=== PATIENT | female | born 1960 | race Caucasian/White ===

== ENCOUNTER 2025-02-21 07:49 | Outpatient (REF) | payer OTHER, SELFPAY ==
[2025-02-21 09:24] LABS: MANUAL DIFF FLAG NO
[2025-02-21 09:50] LABS: Basophils Percent Auto 0.8 % (0-2); Eosinophils Absolute Auto 0.1 X10*3/uL (0.0-0.4); Hematocrit 35.8 % (37.0-47.0); Hemoglobin 12.2 g/dl (12.0-16.0); Imm Gran Abs Auto 0.01 X10*3/uL (0.00-0.03); Imm Gran Pct Auto 0.2 % (0.0-0.4); Lymphocytes Absolute Auto 1.3 X10*3/uL (1.2-4.9); Lymphocytes Percent Auto 26.5 % (20-40); Mean Corpuscular HGB Conc 34.1 g/dl (31.0-35.0); Mean Corpuscular Hemoglobin 32.3 pg (27.0-33.0); Mean Corpuscular Volume 94.7 fL (80.0-98.0); Monocytes Absolute Auto 0.6 X10*3/uL (0.1-1.2); Monocytes Percent Auto 11.8 % (2-11); Neutrophils Absolute Auto 2.9 x10*3/uL (2.0-8.3); Neutrophils Percent Auto 59.7 % (45-73); Platelet Count 233 X10*3/uL (160-400); Red Blood Count 3.78 X10*6/uL (4.20-5.50); Red Cell Distribution Width 12.8 % (11.0-16.0); White Blood Count 4.9 X10*3/uL (4.8-10.8)
[2025-02-21 10:13] LABS: Alanine Aminotransferase 18 U/L (0-31); Albumin Level 4.7 g/dL (3.5-5.0); Alkaline Phosphatase 47 U/L (39-117); Anion Gap 12 (12-20); Aspartate Amino Transferase 24 U/L (5-31); Bilirubin Total 0.9 mg/dL (0.0-1.0); Blood Urea Nitrogen 14 mg/dL (9-16); Calcium 9.4 mg/dL (8.4-10.2); Carbon Dioxide 28 mmol/L (22-29); Chloride 105 mmol/L (96-108); Cholesterol 217 mg/dL (<200); Estimated Glomerular Filt Rate > 60; Glucose Random 113 mg/dL (60-115); HDL Cholesterol 93 mg/dL (>40); LDL Cholesterol Calculated 105 mg/dL (<100); Potassium 4.3 mmol/L (3.3-5.1); Sodium 141 mmol/L (135-145); Total Protein 7.5 g/dL (6.5-8.0); Triglycerides 96 mg/dL (<150)
[2025-02-21 10:33] LABS: Free T4 (Free Thyroxine) 0.91 ng/dL (0.71-1.85); TSH reflex Free T4 0.65 uIU/mL (0.32-4.0); Vitamin D 25-OH Total 60.6 ng/mL (>30)
[2025-02-21 10:41] LABS: Folate 8.5 ng/mL (> or = 4.0); Vitamin B12 456 pg/mL (200-900)
== END 2025-02-21 07:50 | disposition home or self-care (01) ==
LOC: HO.LAB 07:49
DX: K21.9 Gastro-esophageal reflux disease without esophagitis (principal); C44.91 Basal cell carcinoma of skin, unspecified; G47.00 Insomnia, unspecified; G47.10 Hypersomnia, unspecified; R92.8 Other abnormal and inconclusive findings on diagnostic imaging of breast; E78.5 Hyperlipidemia, unspecified; Z13.220 Encounter for screening for lipoid disorders; Z13.29 Encounter for screening for other suspected endocrine disorder; Z13.21 Encounter for screening for nutritional disorder; Z00.00 Encounter for general adult medical examination without abnormal findings
CPT/HCPCS: 36415; 80053; 80061; 82306; 82607; 82746; 84439; 84443; 85025; 96127; 99202

== ENCOUNTER 2025-02-21 07:49 | Outpatient (AMB) | payer OTHER, SELFPAY ==
--- OUTSIDE RECORDS SUMMARY | 2025-02-21 07:51 | XMS_ITS | Clinical Summary ---
Author Organization [facility] Address [address] [place] [address] Care Team Providers Care Electronic Design Engineer Name Role Phone Unavailable Primary Care Provider Unavailabl e Social History Tobacco Use Types Packs/Day Years Used Date Smoking Tobacco: Never Assessed Sex and Gender Information Value Date Recorded Sex Assigned at Not on file Gender Identity Not on file Sexual Orientation Not on file Plan of Treatment Health Maintenance Due Date Last Done Comments Hepatitis C Screening 1961 COVID-19 Vaccine (#1) 06/07/1962 Depression Screening 1973 Preventative Health Evaluation 12/07/1979 DTap / Tdap / Td (1 - Tdap) 1980 Cervical Cancer Screening (P ap Smear) 1982 Colon Cancer Screening (Colonoscopy) 2006 Breast Cancer Screening (Mammogram) 12/07/2011 Shingrix-Zoster Vaccine (1 of 2) 12/07/2011 Influenza Vaccine (Season Ended) 2025 RSV Adult > 60+ Yrs or Pregn ant (1 - 1-dose 75+ series) 2036 Hepatitis B Vaccines Aged Out No long er eligible based on patient's age to complete this topic Pneumococcal Vaccine Aged Out No long er eligible based on patient's age to complete this topic RSV Ped < 20 months Aged Out No longe r eligible based on patient's age to complete this topic
[2025-02-21 08:01] VITALS: BP 118/68; PULSE 71; O2SAT 97; BMI 19.9
--- NOTE | 2025-02-21 08:01 | MHC.PC.OV ---
Vital Signs 02/21/25 08:01 Height 5 ft 4.57 in Weight 118 lb BMI 19.9 BP 118/68 Blood Pressure Location Lt brachial Position Sitting Pulse 71 Pulse Source Pulse Oximeter Pulse Oximetry (%) 97 Oxygen Delivery Method Room Air Intake Visit Reasons: establish care Allergies No Known Allergies Allergy (Verified 02/21/25 08:10) Medication List - Last Reconciled 02/21/25 by Bina Aleman PA-C cholecalciferol (vitamin D3) 50 mcg PO DAILY cyanocobalamin (vitamin B-12) 1,000 mcg PO DAILY omeprazole 40 mg PO DAILY Tobacco use date assessed: 02/21/25 Dental Screening Dental Screen Date: 02/21/25 Did you have a dental visit in the last 12 months?: Yes Did you have a dental problem in the last 6 months where you did not have access to dental care?: No Was dental information given to patient?: Patient has dentist HPI establish care HPI Details 64-year-old female with past medical history of chronic GERD, hyperlipidemia, chronic sciatica and history of basal cell carcinoma coming to the office for the 1st time. Presenting for a wellness visit and management of chronic conditions. The patient has a history of basal cell carcinoma, with recent findings of two spots on her back confirmed as basal cell carcinoma by her business administrator. She is scheduled to see a surgeon on March 27 for removal of these lesions. The patient reports chronic insomnia, with difficulty staying asleep and frequent awakenings throughout the night. She has tried onne-yuc-gnpguyz medications and alcohol to aid sleep, with limited success. The patient has a history of acid reflux, which is currently managed with medication. The patient is due for a colonoscopy and has been referred for this procedure. She had an abnormal mammogram earlier this year and is scheduled for a follow-up in March. [facility] Surgical History Status post Mohs surgery Family History Mother Heart disease Heart attack Father Heart disease Heart attack Emphysema lung Brother No problems noted. Brother Stroke Social History Housing: House Patient Tobacco Use Status: Never used Tobacco Tobacco use type: Cigarette e-Cigarette/Vaping Use: Never Used Second Hand Smoke Exposure: No service: No Current occupational status: employed Current occupational exposures/hazards: No Cognitive needs: No Hearing needs: No Vision needs: Yes Questionnaire PHQ-9 Over the last 2 weeks, how often have you been bothered by any of the following problems? 1. Little interest or pleasure in doing things: not at all 2. Feeling down, depressed, or hopeless: not at all 3. Trouble falling or staying asleep, or sleeping too much: not at all 4. Feeling tired or having little energy: not at all 5. Poor appetite or overeating: not at all 6. Feeling bad about yourself - or that you are a failure or have let yourself or your family down: not at all 7. Trouble concentrating on things, such as reading the newspaper or watching television: not at all 8. Moving or speaking so slowly that other people could have noticed. Or the opposite - being so fidgety or restless that you have been moving around a lot more than usual: not at all 9. Thoughts that you would be better off or of hurting yourself in some way: not at all Total score: 0 Depression Screening Interpretation: Negative Depression Screening Done: Yes 52149 - PHQ-9 Billing: Yes Source: Developed by Drs. Edinson Wright, Annette Miller, Josesito Álvarez and colleagues, with an educational elle from [employer]. Thrive Questionnaire Date Thrive assessed: 02/15/25 I am a: Patient What is your living situation today?: I have a steady place to live Within the past 12 months, did the food you bought not last and you didn't have the money to get more?: Never true Within the past 12 months, did you worry whether your food would run out before you got money to buy more?: Never true Do you have trouble paying for medicines?: No Do you have trouble getting transportation to medical appointments?: No Do you have trouble paying your heating and electricity bill?: No Do you have trouble taking care of your child, family member or friend?: No Do you have trouble with day-to-day activities such as bathing, preparing meals, shopping, managing finances, etc.?: No Are you currently unemployed and looking for a job?: No Are you interested in more education?: No Please select the resources that you would like help with: None Currently or been in a relationship where the following occur: No concerns reported THRIVE Score: 0 AUDIT C Alcohol Use Questionnaire (AUDIT-C) 1. How often do you have a drink containing alcohol?: 2-3 times a week 2. How many drinks containing alcohol do you have on a typical day when you are drinking?: 3 or 4 3. How often do you have six or more drinks on one occasion?: Less than monthly Total Score: 5 ALVIN-7 AMB Questionnaire ALVIN-7 Date ALVIN - 7 assessed: 02/21/25 Feeling nervous, anxious, or on edge: 0 = Not at all Not being able to stop or control worryin = Not at all Worrying too much about different things: 0 = Not at all Trouble relaxin = Several days Being so restless that it is hard to sit still: 3 = Nearly every day Becoming easily annoyed or irritable: 0 = Not at all Feeling afraid as if something awful might happen: 0 = Not at all Total ALVIN-7 score (0-4 normal; 5-9 mild; 10-14 moderate; 15-21 severe): 4 Source: Developed by Drs. Edinson Wright, Annette Miller, Josesito Álvarez and colleagues, with an educational elle from [employer]. ALVIN-7 Assessment Billing ALVIN-7 Assessment Tool: ALVIN-7 Assessment 13386 Review of Systems Const Denies body aches, Denies chills, Denies fever(s), Denies headache(s) and Denies poor appetite Eyes Reports no additional complaints ENT Denies dysphagia, Denies dizziness, Denies headache(s) and Denies odynophagia Card Denies chest pain, Denies syncope, Denies edema, Denies irregular heart rhythm, Denies lightheadedness and Denies dyspnea Resp Denies cough and Denies dyspnea GI Denies abdominal pain, Denies constipation, Denies dysphagia, Denies diarrhea, Denies nausea, Denies odynophagia and Denies vomiting Reports no additional complaints Musc Reports no additional complaints and Denies abnormal gait Skin/Breast Reports system reviewed and no additional complaints, except as documented Neuro Denies abnormal gait, Denies dizziness, Denies syncope and Denies headache(s) Psych Reports no additional complaints Physical exam (Primary Care) Vital Signs: Last Vital Signs Pulse 71 02/21/25 08:01 BP 118/68 02/21/25 08:01 Pulse Ox 97 02/21/25 08:01 Oxygen Delivery Method Room Air 02/21/25 08:01 BMI result Body Mass Index 19.9 Tobacco/Smoking Status: Tobacco use Status Tobacco use date assessed 02/21/25 02/21/25 08:08 Patient Tobacco Use Status Never used Tobacco 02/21/25 08:08 Tobacco use type Cigarette 02/21/25 08:08 e-Cigarette/Vaping Use Never Used 02/21/25 08:08 PHQ-9: PHQ-9 Score PHQ-9: Total score 0 02/21/25 08:10 Depression Screening Interpretation: Negative Thrive Assessment: Date of Thrive Assessment Date Thrive assessed 02/15/25 02/21/25 08:08 Currently or been in a relationship where the following occur: No concerns reported Const General: cooperative, healthy appearing, comfortable and no acute distress Orientation/consciousness: patient oriented x3 HENMT Head: Yes normocephalic Ears: hearing grossly normal bilaterally General nose exam: Normal external nose present Eyes General: appearance normal, both eyes and all related structures Conjunctivae: conjunctivae normal Neck Neck: Yes full ROM and Yes no lymphadenopathy Resp Effort & Inspection: normal respiratory effort Auscultation: clear to auscultation bilaterally, no crackles, no rales, no rhonchi and no wheezes Cardio Rate: regular rate Rhythm: regular rhythm Skin General skin exam: no rashes or lesions noted Neuro General: patient oriented x3 Gait exam (Neuro): Normal gait present Extrem General: Yes normal to inspection, Yes full ROM and No edema Psych Affect: normal affect Attitude: cooperative Insight: Good insight present (Psych) Judgement: Good judgement present (Psych) Coding Level of Care Code New Pt Level 4 (05641) Diagnoses GERD (gastroesophageal reflux disease) K21.9 Basal cell carcinoma C44.91 Screening for hypercholesterolemia Z13.220 Screening for thyroid disorder Z13.29 Insomnia, unspecified type G47.00 Insomnia type: unspecified Hypersomnolence G47.10 Abnormal mammogram R92.8 Additional Codes ALVIN-7 Assessment Billing - ALVIN-7 Assessment Tool: ALVIN-7 Assessment 59695 ([id number]) PHQ-9 - 50240 - PHQ-9 Billing: Yes ([id number]) Assessment & Plan Assessment & Plan (1) GERD (gastroesophageal reflux disease): Code(s): K21.9 - Gastro-esophageal reflux disease without esophagitis Category: Medical Plan: Avoid trigger foods such as citrus, tomato products, soda, caffeine, spicy foods and other foods that may be irritating to your stomach. Avoid laying flat 3-4 hours after eating and elevate the head of the bed 30 degrees to prevent acid from moving into the esophagus. Continue on Omeprazole (2) Basal cell carcinoma: Comment: Derm through [facility] skin lesion on the back x2 Code(s): C44.91 - Basal cell carcinoma of skin, unspecified Category: Medical Plan: Currently following with [facility] and [place]. She has a history of basal cell carcinoma that was removed from her upper lip. Subsequently 2 other lesions were identified on the back and she is scheduled to see a surgeon later this month. (3) Screening for hypercholesterolemia: Code(s): Z13.220 - Encounter for screening for lipoid disorders Category: Medical Plan: Blood work ordered (4) Screening for thyroid disorder: Code(s): Z13.29 - Encounter for screening for other suspected endocrine disorder Category: Medical Plan: Blood work ordered (5) Insomnia: Code(s): G47.00 - Insomnia, unspecified Category: Medical Qualifiers: Insomnia type: unspecified Qualified Code(s): G47.00 - Insomnia, unspecified Plan: Patient have difficulty falling asleep and staying asleep she has tried multiple xdkw-ers-dtyglwz medications including; Tylenol PM, Advil PM and melatonin. All of his medications have helped her fall asleep but not stay asleep. Discussed possibility of treatment and hydroxyzine was decided upon by the patient. Plan to start on 25 mg nightly discussed side effects of this medication when to reach out to the office. (6) Hypersomnolence: Code(s): G47.10 - Hypersomnia, unspecified Category: Medical Plan: Plan to obtain sleep study for further evaluation. (7) Abnormal mammogram: Code(s): R92.8 - Other abnormal and inconclusive findings on diagnostic imaging of breast Category: Medical Plan: [place] [facility] [place] of breast abnormality. Plan to obtain these notes. Plan The patient will be referred for a colonoscopy to screen for colorectal cancer, as she is due for this preventative measure. A follow-up mammogram is scheduled for March due to a previous abnormal result, ensuring close monitoring of her breast health. Additionally, a bone density screening is recommended to assess her risk for osteoporosis, with advice to increase dietary calcium and vitamin D intake to support bone health. For her insomnia, hydroxyzine has been prescribed to aid sleep, with instructions to monitor its effectiveness and report any adverse effects. A sleep study is also planned to rule out any underlying sleep disorders such as sleep apnea. The patient's acid reflux will continue to be managed with her current medication, and she is advised to contact the pharmacy for any necessary refills. Lastly, the patient is scheduled to see a surgeon on March 27 for the removal of basal cell carcinoma lesions on her back, following recent dermatological findings. This note was constructed using voice recognition software. While every effort has been made to ensure accuracy and planishing hammer operator, still areas may have been included sometimes these areas may affect the content or meeting of the given symptoms. Total time spent caring for the patient today was 45 minutes. This includes time spent before the visit reviewing the chart, time spent during the visit, and time spent after the visit and documentation. Patient was informed and verbally consented to the use of an ambient scribe for clinic note documentation during this visit. Orders: Orders Comprehensive Met. Panel Today K21.9 - Gastro-esophageal reflux disease without esophagitis, Z00.00 - Encounter for general adult medical examination without abnormal findings Complete Blood Count Auto Diff Today K21.9 - Gastro-esophageal reflux disease without esophagitis, Z00.00 - Encounter for general adult medical examination without abnormal findings Vitamin B12 and Folate Today K21.9 - Gastro-esophageal reflux disease without esophagitis, Z13.21 - Encounter for screening for nutritional disorder TSH reflex Free T4 Today Z13.29 - Encounter for screening for other suspected endocrine disorder RT home sleep study Today G47.10 - Hypersomnia, unspecified Vitamin D 25-OH Total Today K21.9 - Gastro-esophageal reflux disease without esophagitis, Z00.00 - Encounter for general adult medical examination without abnormal findings Free T4 (Free Thyroxine) Today Z13.29 - Encounter for screening for other suspected endocrine disorder Lipid Panel Today Z13.220 - Encounter for screening for lipoid disorders Referrals Gastroenterology Referral Z12.11 - Encounter for screening for malignant neoplasm of colon Medications: New omeprazole 40 mg PO DAILY 90 caps 1RF hydroxyzine HCl 25 mg PO BEDTIME 30 tabs 1RF
== END 2025-02-21 08:59 | disposition home or self-care (01) ==
LOC: HO.HMCH 07:49
DX: K21.9 Gastro-esophageal reflux disease without esophagitis (principal); C44.91 Basal cell carcinoma of skin, unspecified; Z13.220 Encounter for screening for lipoid disorders; Z13.29 Encounter for screening for other suspected endocrine disorder; G47.00 Insomnia, unspecified; G47.10 Hypersomnia, unspecified; R92.8 Other abnormal and inconclusive findings on diagnostic imaging of breast

== ENCOUNTER 2025-04-24 10:17 | Outpatient (AMB) | payer OTHER, SELFPAY ==
--- OUTSIDE RECORDS SUMMARY | 2025-04-21 10:00 | XMS_ITS | Encounter Summary ---
Author Organization [facility] Address [address] [place] [address] Care Team Providers Care Film And Video Editor Name Role Phone Paola Llamas MD Primary Care Provide r Reason for Visit * Reason Comments Procedure Excisions Encounter Details Date Type Department Care Team (Latest Contact Info) Description 04/21/2025 10:00 AM EDT Procedure visit General Surgery - [place] [address] [facility] [address] [place] [id number] Sukh Javier MD [address] [facility] [address] [place] [address] Basal cell carcinoma (BCC) of back (Primary Dx) Social History Tobacco Use Types Packs/Day Years Used Date Smoking Tobacco: Never Smokeless Tobacco: Never Alcohol Use Standard Drinks/Week Comments Yes 0 (1 standard drink = 0.6 oz pur e alcohol) Comments Unknown Sex and Gender Information Value Date Recorded Sex Assigned at Not on file Legal Sex Female 1:52 PM EST Gender Identity Not on file Sexual Orientation Not on file documented as of this encounter Last Filed Vital Signs Vital Sign Reading Time Taken Comments Blood Pressure 120/76 04/21/2025 10:11 AM EDT Pulse 80 04/21/2025 10:11 AM EDT Temperature 36.2 C (97.1 F) 04/21/2025 10:11 AM EDT Respiratory Rate - - Oxygen Saturation - - Inhaled Oxygen Concentration - - Weight 55.3 kg (122 lb) 04/21/2025 10:11 AM EDT Height 165.1 cm (5' 5 ) 04/21/2025 10:11 AM EDT Body Mass Index 20.3 04/21/2025 10:11 AM EDT documented in this encounter Progress Notes * Lilia Max MA - 04/21/2025 10:00 AM EDT CARING FOR YOUR WOUND AT HOME: A waterproof dressing has been applied over your incision today. Please leave this on for 2 days (you may remove this dressing on 04/23). Some oozing of blood may be normal following your procedure and typically represents old surgical blood making its way out through your incision prior to it fully closing. You may change your dressing earlier than 2 days as needed if you note blood soaking through the bandage. You may shower right away following your procedure, however please do not soak in baths, hot tubs, pools, etc. until after being evaluated at your follow up appointment. After removing your dressing, please make sure to keep your incision clean and dry. Gently wash with soap and water and pat dry with a clean towel. It is best to leave this open to the air, however you may and apply a bandaid or gauze dressing as needed for comfort. If you do not have steri strips in place, please apply a thin layer of antibiotic ointment (bacitracin, neosporin) over the sutures once daily. The area may be sore following the procedure. You may take over the counter pain medications (ex. Tylenol, Ibuprofen) for postoperative discomfort if you have no known contraindications to taking these medications. You may additionally ice the incision site. Carefully watch for signs of potential wound infection such as fevers > 101.4 F, chills, nausea,vomiting, increased pain in the area, surrounding redness, or excessive drainage. Please call the office if any of these symptoms or other concerns arise. If you do not have any external sutures to remove, we may follow up in the office on an as-needed basis. The office will call you with pathology results once available. If you have external sutures in place that need to be removed, we will plan to follow up in the office 10-14 days later for sutureremoval. If you have any questions or concerns, please feel free to call the office at [phone]. * Sukh Sobral, MD - 04/21/2025 10:00 AM EDT Images from the original note were not included. Pre and post op dx: 1. Dysplastic nevus left mid back 2. Basal cell carcinoma left lower back Procedure: 1. Excision 0.6 cm basal cell carcinoma from the left lower back 2. 1.5 cm layered closure Indication: Karli Ariza is a 64 y.o. year old female very pleasant who comes in for evaluation and management of a compound nevus with architectural disorder and moderate cytologic atypia (dysplastic nevus) extending to 1 peripheral margin and to the deep margin of a shave biopsy specimen obtained February 07, 2025. Also a basal cell carcinoma of the nodular type extending to 1 peripheral margin and to the deep margin. She has a personal history of prior nonmelanoma skin cancers excised fromthe face and the chest. Undergoes regular full skin examinations. Otherwise fairly healthy, non-smoker, nondiabetic who does not take anticoagulants or antiplatelets or steroids. On exam there are 2 healing cicatrix sites consistent with the relatively recent history of shave biopsy. I reviewed and interpreted the pathology report from the shave biopsies obtained February 07, 2025 fromthe left mid back consisting of a flat piece of skin measuring 0.5 cm with a central brown macule measuring 0.2 cm. The specimen from the left lower back measured 0.6 cm. Otherwise pathology as per above I had a discussion with the patient regarding the nature of her history and physical exam findings as well as the pathology results indicating a dysplastic nevus in the left upper back which appears to have been almost entirely excised with the shave biopsy but there is a possibility some small amount of residual material could be still in situ remaining. I explained the option of elective excision in the setting under local anesthesia versus watchful waiting for this particular lesion. In the left lower back the area should be excised to negative margins to address the biopsy-proven malignancy. Minimal operative risks expected. The patient had several question which I believe were answeredto her satisfaction. Joint decision made to proceed with excision of both sites simultaneously Description: Local anesthesia was administered following sterile prep and drape. Next a full-thickness elliptical incision was made through the dermis with a scalpel and extended or deepened around and under the lesion through subcutaneous tissue with sharp dissection. The lesion and a margin of normal tissue were completely excised, removed, marked and sent to pathology. The greatest clinical diameter of the apparent lesion was 0.6 cm. The most narrow margin required for complete excision was 0.1 cm circumferentially. The total excised diameter was 0.8 cm. This created a rather deep local defect measuring approximately 1.5 centimeters in total length. The resulting complex laceration or wound was closed in 2 layers. Hemostasis was achieved by tissue approximation and observed to be complete. The wound edges were first approximated with deep dermal sutures of 3-0 Vicryl. The more superficial layer of skin was then closed with 4-0 Nylon. The area was treated with antimicrobial ointment. A clean dressing was applied. Blood loss: Minimal Complications: None The patient was given wound care and activity instructions. The patient will return for followup in2 weeks. documented in this encounter Plan of Treatment Upcoming Encounters Date Type Department Care Team (Late st Contact Info) Description 05/05/2025 10:00 AM EDT Clinical Support General Surgery [address] [place] [id number] Pending Results Name Type Priority Associated Diagnoses Date /Time Tissue Exam Pathology and Cytology Routine Basal cell carcinoma (BCC) of back 04/21/2025 10:55 AM EDT documented as of this encounter Visit Diagnoses Diagnosis Basal cell carcinoma (BCC) of back- Primary documented in this encounter Care Teams Film And Video Editor Relationship Specialty Start Date End Date Paola Llmaas MD [address] [place] [address] PCP - General Internal Medicine 01/10/21 documented as of this encounter
--- NOTE | 2025-04-24 10:26 | A.OFFPC_ITS ---
Vital Signs 3 04/24/25 10:28 Height 5 ft 4.57 in Weight 124 lb 2 oz BMI 20.9 BP 120/54 L Blood Pressure Location Lt brachial Position Sitting Pulse 88 Pulse Source Pulse Oximeter Pulse Oximetry (%) 98 Oxygen Delivery Method Room Air Intake Visit Reasons: Annual Exam Pediatric Dental Assistant Required: No Allergies No Known Allergies Allergy (Verified 04/24/25 10:42) Medication List - Last Reconciled 04/24/25 by Bina Aleman PA-C cholecalciferol (vitamin D3) 50 mcg PO DAILY cyanocobalamin (vitamin B-12) 1,000 mcg PO DAILY hydroxyzine HCl 25 mg PO BEDTIME omeprazole 40 mg PO DAILY Tobacco use date assessed: 04/24/25 Dental Screening Dental Screen Date: 04/24/25 Did you have a dental visit in the last 12 months?: Yes Did you have a dental problem in the last 6 months where you did not have access to dental care?: No Was dental information given to patient?: Patient has dentist HPI Annual Exam 2 HPI0 Details 64-year-old female past medical history of GERD, basal cell carcinoma, insomnia, hypersomnolence last seen 01/2225 coming in for annual exam. Presenting for an annual examination. The patient has a history of basal cell carcinoma and continues to follow up with dermatology for management. Recently, a basal cell lesion was removed from her back, and she has two stitches in place with no signs of infection. The patient has been experiencing insomnia and hypersomnolence, for which she has been taking hydroxyzine as needed. She reports that hydroxyzine helps her fall asleep but she wakes up after a few hours. The dosage of hydroxyzine is being adjusted to 50 mg to improve her sleep duration. mammo: [facility] - diag mammo Thursday colonoscopy: scheduled for 05/2025 vaccines: UTD she believes pap smears: [facility] Medical History Screening for thyroid disorder Screening for hypercholesterolemia Surgical History Status post Mohs surgery Family History Mother Heart disease Heart attack Father Heart disease Heart attack Emphysema lung Brother No problems noted. Brother Stroke Social History Housing: House Patient Tobacco Use Status: Never used Tobacco Tobacco use type: Cigarette e-Cigarette/Vaping Use: Never Used Second Hand Smoke Exposure: No service: No Current occupational status: employed Current occupational exposures/hazards: No Cognitive needs: No Hearing needs: No Vision needs: Yes Questionnaire PHQ-9 Over the last 2 weeks, how often have you been bothered by any of the following problems? 1. Little interest or pleasure in doing things: not at all 2. Feeling down, depressed, or hopeless: not at all 3. Trouble falling or staying asleep, or sleeping too much: not at all 4. Feeling tired or having little energy: not at all 5. Poor appetite or overeating: not at all 6. Feeling bad about yourself - or that you are a failure or have let yourself or your family down: not at all 7. Trouble concentrating on things, such as reading the newspaper or watching television: not at all 8. Moving or speaking so slowly that other people could have noticed. Or the opposite - being so fidgety or restless that you have been moving around a lot more than usual: not at all 9. Thoughts that you would be better off or of hurting yourself in some way: not at all Total score: 0 Depression Screening Interpretation: Negative Depression Screening Done: Yes Source: Developed by Drs. Edinson Wright, Annette Miller, Josesito Álvarez and colleagues, with an educational elle from [employer]. Thrive Questionnaire Date Thrive assessed: 02/15/25 I am a: Patient What is your living situation today?: I have a steady place to live Within the past 12 months, did the food you bought not last and you didn't have the money to get more?: Never true Within the past 12 months, did you worry whether your food would run out before you got money to buy more?: Never true Do you have trouble paying for medicines?: No Do you have trouble getting transportation to medical appointments?: No Do you have trouble paying your heating and electricity bill?: No Do you have trouble taking care of your child, family member or friend?: No Do you have trouble with day-to-day activities such as bathing, preparing meals, shopping, managing finances, etc.?: No Are you currently unemployed and looking for a job?: No Are you interested in more education?: No Please select the resources that you would like help with: None Currently or been in a relationship where the following occur: No concerns reported THRIVE Score: 0 AUDIT C Alcohol Use Questionnaire (AUDIT-C) 1. How often do you have a drink containing alcohol?: 2-3 times a week 2. How many drinks containing alcohol do you have on a typical day when you are drinking?: 3 or 4 3. How often do you have six or more drinks on one occasion?: Less than monthly Total Score: 5 ALVIN-7 AMB Questionnaire ALVIN-7 Date ALVIN - 7 assessed: 02/21/25 Feeling nervous, anxious, or on edge: 0 = Not at all Not being able to stop or control worryin = Not at all Worrying too much about different things: 0 = Not at all Trouble relaxin = Several days Being so restless that it is hard to sit still: 3 = Nearly every day Becoming easily annoyed or irritable: 0 = Not at all Feeling afraid as if something awful might happen: 0 = Not at all Total ALVIN-7 score (0-4 normal; 5-9 mild; 10-14 moderate; 15-21 severe): 4 Source: Developed by Drs. Edinson Wright, Annette Miller, Josesito Álvarez and colleagues, with an educational elle from [employer]. Review of Systems Const Denies body aches, Denies fatigue, Denies fever(s), Denies frequent falls, Denies headache(s) and Denies weakness Eyes Reports no additional complaints and Denies change in vision ENT Denies dysphagia, Denies dizziness, Denies facial pain, Denies headache(s), Denies nasal congestion and Denies odynophagia Card Denies chest pain, Denies syncope, Denies irregular heart rhythm, Denies leg edema, Denies lightheadedness and Denies dyspnea Resp Denies cough and Denies dyspnea GI Denies constipation, Denies dysphagia, Denies dyspepsia, Denies diarrhea, Denies nausea, Denies odynophagia and Denies vomiting Denies urinary frequency, Denies dysuria, Denies urinary hesitancy and Denies urinary urgency Musc Denies back pain and Denies myalgias Skin/Breast Reports system reviewed and no additional complaints, except as documented Neuro Denies dizziness, Denies syncope, Denies frequent falls, Denies headache(s) and Denies weakness Psych Reports no additional complaints Endo Denies fatigue Physical exam (Primary Care) Vital Signs: Last Vital Signs Pulse 88 04/24/25 10:28 BP 120/54 L 04/24/25 10:28 Pulse Ox 98 04/24/25 10:28 Oxygen Delivery Method Room Air 04/24/25 10:28 BMI result Body Mass Index 20.9 Tobacco/Smoking Status: Tobacco use Status Tobacco use date assessed 04/24/25 04/24/25 10:33 Patient Tobacco Use Status Never used Tobacco 04/24/25 10:33 Tobacco use type Cigarette 04/24/25 10:33 e-Cigarette/Vaping Use Never Used 04/24/25 10:33 PHQ-9: PHQ-9 Score PHQ-9: Total score 0 04/24/25 10:42 Depression Screening Interpretation: Negative Thrive Assessment: Date of Thrive Assessment Date Thrive assessed 02/15/25 04/24/25 10:33 Currently or been in a relationship where the following occur: No concerns reported Const General: cooperative, healthy appearing, comfortable and no acute distress Orientation/consciousness: patient oriented x3 HENMT Head: Yes normocephalic Ears: hearing grossly normal bilaterally, external ears normal, TM's normal bilaterally and EAC's normal General nose exam: Normal external nose present Face and sinus: Yes normal facial exam and Yes sinuses nontender Mouth: Normal oral and palatal mucosa present and tongue normal Throat: Yes posterior oropharynx normal Eyes General: appearance normal, both eyes and all related structures Conjunctivae: conjunctivae normal Pupils: Equal, round and reactive pupils present EOM: EOMs intact bilaterally and No Nystagmus present Neck Neck: Yes normal visual inspection, Yes full ROM and Yes no lymphadenopathy Chest Chest palpation & inspection: normal inspection of the chest Resp Effort & Inspection: normal respiratory effort Auscultation: clear to auscultation bilaterally, no crackles, no rales, no rhonchi, no wheezes and breath sounds present Cardio Rate: regular rate Rhythm: regular rhythm Peripheral pulses: radial pulses present and dorsalis pedis present GI Inspection: Yes normal to inspection and No Abdominal wall edema Palpation (GI): Soft to palpation, not firm and nontender Auscultation: normal bowel sounds Rectal Exam - Female: deferred General: Yes no CVA tenderness Back/Spine/Pelvis Back: no CVA tenderness Skin General skin exam: no rashes or lesions noted Full body images: 2 1. Incision site clean dry and intact with to in place sutures without evidence of dehiscence. No drainage or erythema Neuro General: patient oriented x3 Cranial nerves: Yes Equal, round and reactive pupils present, Yes Midline tongue present, Yes Ability to bilaterally elevate shoulders present and No Nystagmus present Gait exam (Neuro): Normal gait present Extrem General: Yes normal to inspection, Yes full ROM, No no pedal edema and No edema Psych Speech and movement: Normal speech and movement present Affect: normal affect Insight: Good insight present (Psych) Judgement: Good judgement present (Psych) Coding Level of Care Code Est Pt Prev Care 40-64y(46757) Diagnoses Annual physical exam Z00.00 GERD (gastroesophageal reflux disease) K21.9 Basal cell carcinoma C44.91 Insomnia, unspecified type G47.00 Insomnia type: unspecified Hypersomnolence G47.10 Abnormal mammogram R92.8 Low hematocrit D64.9 Assessment & Plan Assessment & Plan (1) Annual physical exam: Code(s): Z00.00 - Encounter for general adult medical examination without abnormal findings Category: Medical Plan: Patient is up-to-date on all recommended routine screenings and vaccinations for her age. Colonoscopy is scheduled for later this year and mammogram was scheduled for next week with [facility]. She is due for tetanus vaccine which she declines today and agrees to reschedule. Blood work is up-to-date and has been reviewed with the patient today. (2) GERD (gastroesophageal reflux disease): Code(s): K21.9 - Gastro-esophageal reflux disease without esophagitis Category: Medical Plan: Avoid trigger foods such as citrus, tomato products, soda, caffeine, spicy foods and other foods that may be irritating to your stomach. Avoid laying flat 3-4 hours after eating and elevate the head of the bed 30 degrees to prevent acid from moving into the esophagus. Continue on Omeprazole (3) Basal cell carcinoma: Comment: Derm through [facility] skin lesion on the back x2 removed by Dr. Salinas Code(s): C44.91 - Basal cell carcinoma of skin, unspecified Category: Medical Plan: Currently following with [facility] and [place]. She has a history of basal cell carcinoma that was removed from her upper lip. Subsequently 2 other lesions were identified on the back and 1 removed on Thursday and she will continue to follow up with Dermatology. (4) Insomnia: Code(s): G47.00 - Insomnia, unspecified Category: Medical Qualifiers: Insomnia type: unspecified Qualified Code(s): G47.00 - Insomnia, unspecified Plan: Patient has been on hydroxyzine as needed since her last visit and feels it has been beneficial. She would like to increase to 50mg at this time and new Rx was sent. (5) Hypersomnolence: Code(s): G47.10 - Hypersomnia, unspecified Category: Medical Plan: Plan to obtain sleep study for further evaluation. (6) Abnormal mammogram: Code(s): R92.8 - Other abnormal and inconclusive findings on diagnostic imaging of breast Category: Medical Plan: Continue to follow with [facility] for management of breast abnormality. Plan to obtain these notes. (7) Low hematocrit: Code(s): D64.9 - Anemia, unspecified Category: Medical Plan: Mildly low red blood cells with a hematocrit with normal hemoglobin. Plan to repeat blood work in 6 months. Reviewed red flag symptoms and when to present for re-evaluation Plan The patient will continue to use hydroxyzine for insomnia, with an increased dosage to 50 mg to improve sleep duration. She is advised to monitor for any signs of urinary retention, a potential side effect of higher doses of hydroxyzine, and to seek emergency care if symptoms occur. A diagnostic mammogram is scheduled to further evaluate a previous finding, and the patient will continue dermatological follow-up for basal cell carcinoma management. Blood work will be repeated in six months to monitor red blood cell levels, and a telehealth follow-up is planned to review results and discuss the sleep study outcomes. This note was constructed using voice recognition software. While every effort has been made to ensure accuracy and rig builder helper, still areas may have been included sometimes these areas may affect the content or meeting of the given symptoms. Total time spent caring for the patient today was thirty minutes. This includes time spent before the visit reviewing the chart, time spent during the visit, and time spent after the visit and documentation. Patient was informed and verbally consented to the use of an ambient scribe for clinic note documentation during this visit. Orders: Orders 2 Complete Blood Count Auto Diff 6 Months C44.91 - Basal cell carcinoma of skin, unspecified, Z00.00 - Encounter for general adult medical examination without abnormal findings Medications: New 2 hydroxyzine HCl 50 mg PO BEDTIME 90 tabs 0RF Discontinued 2 hydroxyzine HCl Discontinued Reason: Patient no longer taking 25 mg PO BEDTIME 90 tabs 1RF
[2025-04-24 10:28] VITALS: BP 120/54; PULSE 88; O2SAT 98; BMI 20.9
--- OUTSIDE RECORDS SUMMARY | 2025-04-24 11:27 | XMS_ITS | Clinical Summary ---
Author Organization [facility] Address [address] [place] [address] Care Team Providers Care Chief Information Security Officer Name Role Phone Unavailable Primary Care Provider [...] Vaccine (1 of 2) 12/07/2011 Influenza Vaccine (#1) 2025 RSV Adult > 60+ Yrs or [...]
== END 2025-04-24 11:07 | disposition home or self-care (01) ==
LOC: HO.HMCH 10:18
DX: Z00.00 Encounter for general adult medical examination without abnormal findings (principal); K21.9 Gastro-esophageal reflux disease without esophagitis; C44.91 Basal cell carcinoma of skin, unspecified; G47.00 Insomnia, unspecified; G47.10 Hypersomnia, unspecified; R92.8 Other abnormal and inconclusive findings on diagnostic imaging of breast; D64.9 Anemia, unspecified

== ENCOUNTER → 2025-04-24 10:17 | Outpatient (BNVA) | payer OTHER, SELFPAY | DX: Z00.00 Encounter for general adult medical examination without abnormal findings (principal); K21.9 Gastro-esophageal reflux disease without esophagitis; G47.00 Insomnia, unspecified; G47.10 Hypersomnia, unspecified; R92.8 Other abnormal and inconclusive findings on diagnostic imaging of breast; D64.9 Anemia, unspecified; Z85.828 Personal history of other malignant neoplasm of skin | CPT/HCPCS: 99396 ==

== ENCOUNTER 2025-06-14 07:54 | Outpatient (AMB) | payer OTHER, SELFPAY ==
--- NOTE | 2025-06-14 07:59 | MHC.OFFVIS ---
Vital Signs 06/14/25 08:00 Height 5 ft 4.7 in Weight 120 lb BMI 20.2 BP 104/64 Blood Pressure Location Lt brachial Position Sitting Pulse 85 Pulse Oximetry (%) 98 Oxygen Delivery Method Room Air Intake Visit Reasons: [place] Screening Intake Note: Patient new consult for 2nd pre Colonoscopy screening. 1st Colonoscopy was 10 yrs ago at [facility]. Patient denies any GI issues. Cosmetology Professor Required: No Accompanied by: Self / Same As Patient Allergies No Known Allergies Allergy (Verified 06/14/25 07:59) Medication List - Last Reconciled 06/14/25 by Brittney Monroe CNP cholecalciferol (vitamin D3) 50 mcg PO DAILY cyanocobalamin (vitamin B-12) 1,000 mcg PO DAILY hydroxyzine HCl 50 mg PO BEDTIME omeprazole 40 mg PO DAILY HPI HPI [place] Screening: Details: Patient is a 64-year-old female with PMH of thyroid disorder, insomnia, BCC s/p excision. Referred for pre colonoscopy screening. Karli's last colonoscopy was completed approximately 10 years ago at another facility ([facility]), during which a polyp was reportedly removed. Denies current GI symptoms: bowel movements are daily with no constipation or diarrhea or changes in stool caliber. Appetite is described as good, recently improved after return to work from summer. No weight loss; weight stable (120?124 lbs). Longstanding history of reflux controlled with daily omeprazole 40 mg, no heartburn or regurgitation as long as medication is taken, no dysphagia. No history of sedation complications; prior colonoscopy performed awake by preference. No reported fevers except for brief URI 3 weeks ago (negative COVID/strep). No other chronic symptoms reported. History of basal cell carcinoma excised February 2025 and prior forehead lesion removed (timing unspecified), otherwise no history of other malignancy. On hydroxyzine PRN for sleep, started recently with good effect. Patient denies: fever/chills, n/v, appetite changes, , regurgitation,dysphasia, unintentional wt loss, ab pain or melena/hematochezia. Social hx: -ETOH use, Occasional, limited to weekends -denies recreational drug use -non-smoker -Occupation: Catering staff at [employer]; no GI-relevant exposures reported -Recreational: Golfs, regular beach visits - family hx as below - personal hx of CA -denies significant cardiopulmonary history -tolerated anesthesia in the past without difficulty [facility] Medical History (Updated 06/14/25 @ 08:41 by Brittney Monroe CNP) Colon cancer screening Screening for thyroid disorder Screening for hypercholesterolemia Surgical History Status post Mohs surgery Family History Mother Heart disease Heart attack Father Heart disease Heart attack Emphysema lung Brother No problems noted. Brother Stroke Social History Housing: House Patient Tobacco Use Status: Never used Tobacco Tobacco use type: Cigarette e-Cigarette/Vaping Use: Never Used Second Hand Smoke Exposure: No service: No Current occupational status: employed Current occupational exposures/hazards: No Cognitive needs: No Hearing needs: No Vision needs: Yes Review of Systems Const Reports as per HPI ENT Reports as per HPI Card Reports as per HPI Resp Reports as per HPI GI Reports as per HPI Reports as per HPI Physical Exam Vital Signs: Last Vital Signs Pulse 85 06/14/25 08:00 BP 104/64 06/14/25 08:00 Pulse Ox 98 06/14/25 08:00 Oxygen Delivery Method Room Air 06/14/25 08:00 BMI result Body Mass Index 20.2 Const General: healthy appearing, no acute distress and well developed Nutritional Appearance: average body habitus Orientation/consciousness: patient oriented x3 HEENT Head: Yes normal to inspection, Yes normocephalic and Yes atraumatic Face and sinus: Yes normal facial exam Eyes General: appearance normal, both eyes and all related structures Neck Neck: Yes normal visual inspection Resp Effort & Inspection: normal respiratory effort, able to speak in complete sentences, no tracheal deviation and symmetric chest movement Cardio Jugular venous distension: no JVD Neuro General: patient oriented x3 Gait exam (Neuro): Normal gait present Psych Appearance: grossly normal Mental Status: mental status grossly normal Speech and movement: Normal speech and movement present Affect: normal affect Attitude: cooperative Thought process: Normal thought process present Thought content: Normal thought content present Insight: Good insight present (Psych) Judgement: Good judgement present (Psych) Assessment & Plan Assessment & Plan (1) Colon cancer screening: Code(s): Z12.11 - Encounter for screening for malignant neoplasm of colon Category: Medical Plan: Due for polyp surveillance colonoscopy. No alarm features. Standard bowel prep instructions given. Option for Sutab discussed but not chosen. Medications: -prescriptions for laxative tablets and PEG sent to pharmacy; instructions on clear liquid diet given. Patient educated on scheduling process, procedure preparation, including avoiding certain foods and ensuring clear liquid intake Advised on necessity for ride post-procedure due to sedation. (2) GERD (gastroesophageal reflux disease): Code(s): K21.9 - Gastro-esophageal reflux disease without esophagitis Category: Medical Qualifiers: Esophagitis presence: esophagitis presence not specified Qualified Code(s): K21.9 - Gastro-esophageal reflux disease without esophagitis Plan: Chronic reflux, symptom control with daily omeprazole, long-term therapy. Additional Testing: - Recommend upper endoscopy (EGD) concurrent with colonoscopy to assess for sequelae of chronic GERD and long-term PPI use (e.g., esophagitis, Rodriguez?s). Medication Management: - Continue current dose of omeprazole. Lifestyle Recommendations: - Reinforce adherence with PPI; patient reporting efficacy. Follow-Up: - Review EGD findings post-procedure to determine need for ongoing monitoring or therapy adjustments Plan Follow-up after endoscopy or sooner as needed Time: I spent a total of 32 minutes on the date of encounter which includes: Preparing to see the patient (reviewed previous documentation, test results and medical history) Performing a medically appropriate exam and/or evaluation Ordering medications, tests, and procedures Documenting clinical information in the health record Orders: Referrals GI Procedure Notification K21.9 - Gastro-esophageal reflux disease without esophagitis, Z12.11 - Encounter for screening for malignant neoplasm of colon Medications: New simethicone (Gas Relief (simethicone)) per colonoscopy prep instructions 125 mg PO ONCE 4 caps 0RF abdominal distention bisacodyl Take per colonoscopy instructions 5 mg PO ONCE 4 tabs 0RF peg 3350-electrolytes [id number] -5.86 gram until fecal effluent is clear 240 mL PO ONCE 4,000 mL 0RF Coding Level of Care Code New Pt New Pt Level 3 (15023) Patient Type New Diagnoses Colon cancer screening Z12.11 Gastroesophageal reflux disease, unspecified whether esophagitis present K21.9 Esophagitis presence: esophagitis presence not specified
[2025-06-14 08:00] VITALS: BP 104/64; PULSE 85; O2SAT 98; BMI 20.2
--- OUTSIDE RECORDS SUMMARY | 2025-06-14 08:00 | XMS_ITS | Clinical Summary ---
Author Organization [facility] Address [address] [place] [address] Phone Care Team Providers Care Kitchen Porter Name Role Phone Paola Llamas MD Primary Care Provide r Allergies No known active allergies Medications omeprazole (PriLOSEC) [address] capsule Take 1 capsule (40 mg total) by mouth 1 (one) time each day. 03/20/2025 Active hydrOXYzine HCL (ATARAX) 25 mg tablet Take 1 tablet (25 mg total) by mouth. at bedtime. 03/15/2025 Active Encounters Date Type Department Care Team Description 05/05/2025 10:00 AM EDT Clinical Support [address] [phone] Visit for suture removal (Primary Dx) 04/21/2025 10:00 AM EDT Procedure visit [address] [phone] Sukh Javier MD Basal cell carcinoma (BCC) of back (Primary Dx) 04/11/[address] [phone] Sukh Javier MD 03/27/2025 9:45 AM EDT Consult [address] [phone] Sukh Javier MD Basal cell carcinoma (BCC) of back (Primary Dx); Dysplastic nevus from Last 3 Months Family History Medical History Relation Name Comments Stroke Brother Emphysema Father Other: heart disea Father Other: heart disease Mother Relation Name Status Comments Brother Father Mother Social History Tobacco Use Types Packs/Day Years Used Date Smoking Tobacco: Never Smokeless Tobacco: Never Alcohol Use Standard Drinks/Week Comments Yes 0 (1 standard drink = 0.6 oz pur e alcohol) Comments Unknown Sex and Gender Information Value Date Recorded Sex Assigned at Not on file Legal Sex Female 1:52 PM EST Gender Identity Not on file Sexual Orientation Not on file Obstetrics History Last Filed Vital Signs Vital Sign Reading [...] Mass Index 20.3 04/21/2025 10:11 AM EDT Plan of Treatment Health Maintenance Due Date Last Done Comments Breast Cancer Screening 1961 Colorectal Cancer Screening: Colonoscopy 1961 COVID-19 Vaccine (#1) 1966 DTaP,Tdap,and Td Vaccines (1 - Tdap) 1980 Zoster Vaccines (1 of 2) 1980 Cervical Cancer Screening: P ap Smear 1982 Pneumococcal Vaccine: 50+ Ye ars (1 of 1 - PCV) 12/07/2011 Depression Screening 08/31/2024 Cholesterol Screening (Lipid Panel) 02/11/2025 HIV Screening 02/11/2025 Hepatitis C Screening 02/11/2025 Social Influencers of Health Screening 02/11/2025 Influenza Vaccine (#1) 2025 RSV Immunization Adult Patie nts (1 - 1-dose 75+ series) 2036 HIB Vaccines Aged Out No longer eligi ble based on patient's age to complete this topic HPV Vaccines Aged Out No longer eligi ble based on patient's age to complete this topic Hepatitis A Vaccines Aged Out No long er eligible based on patient's age to complete this topic Hepatitis B Vaccines Aged Out No long er eligible based on patient's age to complete this topic IPV Vaccines Aged Out No longer eligi ble based on patient's age to complete this topic MMR Vaccines Aged Out No longer eligi ble based on patient's age to complete this topic Meningococcal ACWY Vaccine Aged Out N o longer eligible based on patient's age to complete this topic Meningococcal B Vaccine Aged Out No l onger eligible based on patient's age to complete this topic RSV Immunization Patients Un meliton 20 months Aged Out No longer eligible b ased on patient's age to complete this topic Varicella Vaccines Aged Out No longer eligible based on patient's age to complete this topic Procedures Procedure Name Priority Date/Time Associated Diagnosis Comments SUTURE REMOVAL Routine 05/05/2025 10:00 AM EDT Visit for suture removal TISSUE EXAM Routine 04/21/2025 10:55 AM EDT Basal cell carcinoma (BCC) of back from Last 3 Months Results * SUTURE REMOVAL (05/05/2025 10:00 AM EDT) Lupe Vazquez MA - 05/05/2025 10:00 AM EDT Lupe Suazo MA 05/05/2025 10:01 AM Suture Removal Date/Time: 05/05/2025 10:00 AM Performed by: Lupe Suazo MA Authorized by: Sukh Javier MD Location: Location: Trunk Trunk location: Back Procedure details: Wound appearance: No signs of infection, good wound healing, clean, nonpurulent and nontender Number of sutures removed: 2 Post-procedure details: Post-removal: No dressing applied Procedure completion: Tolerated Sukh Javier MD IN CLINIC/BEDSIDE ORDERABLES Fi nal Result * Tissue Exam (04/21/2025 10:55 AM EDT) Final Diagnosis Skin, lower back, excision: Dermal scar No neoplasm identified 04/25/2025 12:27 PM EDT [facility] Clinical Information [id number] LEFT LOWER BACK BCC STITCH AT 3' OCLOCK Basal cell carcinoma (BCC) of back (C44.519) 04/25/2025 12:27 PM EDT [facility] Gross Description A. Back, Lower, bcc: Labeled back . Received in formalin is a hawkins-hernandez, 1.0 x 0.6 x 0.2 cm skin ellipse and subcutis with a suture present at one tip per the requisition 3 o'clock . The 9-12-3 o'clock aspect is inked blue, the 3-6-9 o'clock aspect is inked black and the epidermis at 3 o'clock is inked green. The specimen is serially sectioned sequentially from 3-9 o'clock and submitted in entirety in three cassettes. 1-3 and 9 o'clock en face tips with green ink at 3 o'clock, two pieces 2-3 center of specimen, submitted from 3-9, two pieces each TS 04/25/2025 12:27 PM EDT [facility] Disclaimer Unless otherwise specified, all tissue is 10% NB formalin fixed and paraffin embedded. 04/25/2025 12:27 PM EDT [facility] Tissue Lower back structure / Unknown Non-blood Collection / Unknown 04/21/2025 10:55 AM EDT 04/21/2025 10:57 AM EDT Comment:[id number] LOWE R BACK BCCSTITCH AT 3' OCLOCK Sukh Javier MD LAB PATHOLOGY ORDERABLES Final Result [facility] [address] [place] [address], from Last 3 Months Insurance [facility] [employer] Care Teams Kitchen Porter Relationship Specialty Start Date End Date Paola Llamas MD [address] [place] [address] [place] PCP - General Internal Medicine 01/10/21
--- OUTSIDE RECORDS SUMMARY | 2025-06-14 08:00 | XMS_ITS | Clinical Summary ---
Author Organization [facility] [employer] [facility] Address [address] [place] [address] Care Team Providers Care Mining Teacher Name Role Phone Unavailable Primary Care Provider [...]
== END 2025-06-14 08:47 | disposition home or self-care (01) ==
LOC: HO.HGI 07:55
PROVIDERS: Visit Provider Nurse Practitioner Family
DX: Z01.818 Encounter for other preprocedural examination (principal); Z12.11 Encounter for screening for malignant neoplasm of colon; K21.9 Gastro-esophageal reflux disease without esophagitis
CPT/HCPCS: 99203

== ENCOUNTER → 2025-06-14 07:54 | Outpatient (BNVA) | payer OTHER, SELFPAY | PROVIDERS: Visit Provider Nurse Practitioner Family | DX: Z12.11 Encounter for screening for malignant neoplasm of colon (principal); K21.9 Gastro-esophageal reflux disease without esophagitis | CPT/HCPCS: 99202 ==

== ENCOUNTER 2025-08-29 07:37 | Day surgery (SDC) | payer OTHER, SELFPAY ==
--- OUTSIDE RECORDS SUMMARY | 2025-07-20 19:26 | XMS_ITS | Clinical Summary ---
Author Organization [facility] [employer] [facility] Address [address] [place] [address] Care Team Providers Care Bible Reader Name Role Phone Unavailable Primary Care Provider [...]
--- NOTE | 2025-08-23 10:02 | HO.ANESPROP2 ---
Documented by User: Brina Chase NP 08/23/25 10:02 HPI - Anesthesia Eval Consult details Narrative: 64 yr old female for upper endoscopy, colonoscopy PMF Active Problems Active Problems: All Active Problems Colon cancer screening (Acute) Low hematocrit (Acute) Annual physical exam (Acute) Abnormal mammogram (Acute) Hypersomnolence (Acute) Insomnia (Acute) Basal cell carcinoma (Acute) GERD (gastroesophageal reflux disease) (Acute) Past Medical History Medical History Low vitamin D level GERD (gastroesophageal reflux disease) Colon cancer screening Screening for thyroid disorder Screening for hypercholesterolemia Family History Family History Mother Heart disease Heart attack Father Heart disease Heart attack Emphysema lung Brother No problems noted. Brother Stroke Surgical History Surgical History H/O colonoscopy Status post Mohs surgery Social History Social History Housing: House Patient Tobacco Use Status: Never used Tobacco Tobacco use type: Cigarette e-Cigarette/Vaping Use: Never Used Second Hand Smoke Exposure: No Use of substances other than those prescribed or required for medical reasons: No Are you DNR?: No Advance Directives: No Advance Directives Information Provided: Yes service: No Current occupational status: employed Current occupational exposures/hazards: No Cognitive needs: No Hearing needs: No Vision needs: Yes Meds Allergies Allergy/AdvReac Type Severity Reaction Status Date / Time No Known Allergies Allergy Verified 08/29/25 07:35 Home Medications ?Medication ?Instructions ?Recorded ?Confirmed ?Last Taken ?Type cholecalciferol (vitamin D3) 25 50 mcg PO DAILY 02/21/25 08/29/25 Unknown History mcg (1,000 unit) capsule cyanocobalamin (vitamin B-12) 1,000 mcg PO DAILY 02/21/25 08/29/25 Unknown History 1,000 mcg capsule Assessment and Plan Assessment Anesthesia Assessment: Chart Reviewed Documented by User: Donna Stokes MD 08/29/25 07:58 [facility] Past Medical History Medical History Low vitamin D level GERD (gastroesophageal reflux disease) Colon cancer screening Screening for thyroid disorder Screening for hypercholesterolemia Family History Family History Mother Heart disease Heart attack Father Heart disease Heart attack Emphysema lung Brother No problems noted. Brother Stroke Family history of problems with anesthesia: No Surgical History Surgical History H/O colonoscopy Status post Mohs surgery History of Problems with Anesthesia: No Social History Social History Housing: House Patient Tobacco Use Status: Never used Tobacco Tobacco use type: Cigarette e-Cigarette/Vaping Use: Never Used Second Hand Smoke Exposure: No Use of substances other than those prescribed or required for medical reasons: No Are you DNR?: No Advance Directives: No Advance Directives Information Provided: Yes service: No Current occupational status: employed Current occupational exposures/hazards: No Cognitive needs: No Hearing needs: No Vision needs: Yes Meds Allergies Allergy/AdvReac Type Severity Reaction Status Date / Time No Known Allergies Allergy Verified 08/29/25 07:35 Home Medications ?Medication ?Instructions ?Recorded ?Confirmed ?Last Taken ?Type cholecalciferol (vitamin D3) 25 50 mcg PO DAILY 02/21/25 08/29/25 Unknown History mcg (1,000 unit) capsule cyanocobalamin (vitamin B-12) 1,000 mcg PO DAILY 02/21/25 08/29/25 Unknown History 1,000 mcg capsule Exam Airway Mallampati Class: II TM Dist: >3cm Neck ROM: Full Heart: rrr Lungs: cta Assessment and Plan Assessment Anesthesia Assessment: Anesthesia Plan Discussed Final Anesthetic Review Family History of Problems with Anesthesia: No History of Problems with Anesthesia: No NPO: Yes ASA Class: II Final Preanesthetic Review: No Changes in Pt Med Stat, Meds/Allgs Chart Reviewed, Consent Obtained/Reviewed and Anes Risks/Benef Reviewed Patient Risk: Low Procedure Risk: Low Anesthetic Plan Anesthetic Plan: MAC: and Agree w/ Assess. and Plan Disposition: Standard PACU
[2025-08-25 11:02] VITALS: BMI 20.6
[2025-08-29 07:19] VITALS: BMI 20.7
[2025-08-29 07:28] VITALS: BP 158/74; PULSE 88; RESP 15; TEMP 36.9; O2SAT 96
--- NOTE | 2025-08-29 08:01 | MHC.SHP ---
Pre-Procedural Eval Section A - 24 Hr Update-Section A only Date of Service: 08/29/25 Section B - Complete if H&P > 30 days Chief Complaint: gerd,screening Details of Present Illness: Colon cancer screening Screening for thyroid disorder Screening for hypercholesterolemia Surgical History Status post Mohs surgery Family History Mother Heart disease Heart attack Father Heart disease Heart attack Emphysema lung Brother No problems noted. Brother Stroke Present Medications: see Short Stay Collaborative assessment Allergies: Allergies Allergy/AdvReac Type Severity Reaction Status Date / Time No Known Allergies Allergy Verified 08/29/25 07:35 Review of Systems Review of Systems Comment: Ten point ROS negative Exam Exam Comment: Gen appear: No acute distress HEENT: no icterus Chest: No overt resp distress Abd: soft, nontender, nondistended Psych: Stable affect, answering questions appropriately Neuro: A/Ox3 noted to move all extremities spontaneously Ext: no peripheral edema Plan Diagnosis/Plan: Unchanged I have reviewed the history and physical and performed a pertinent physical examination on my patient. No changes have occurred unless specified. Time Spent With Patient Time: Total time managing care of this patient today ____ minutes.
--- NOTE | 2025-08-29 08:24 | PC.NURSE ---
unable to scan ivf
[2025-08-29] MEDS: Lactated Ringers 1,000 ML 100 ML IVCONT (08:49)
--- NOTE | 2025-08-29 09:36 | P.OPN-COLO_ITS ---
Colonoscopy Operative Note Operative Note Date of Service: 08/29/25 Narrative: Procedure: Upper endoscopy and colonoscopy Indication: GERD, screening Endoscopist: Sharmaine Lu MD Anesthesia Provider: Armani Victoria CRNA Anesthesia type: MAC Instrument: [id number] and [id number]-[id number] EGD Procedure:?? The procedure, indications, preparation and potential complications were reviewed with the patient, who indicated understanding and gave written informed consent to proceed. The endoscope was introduced through the mouth, and advanced to the 2nd part of the duodenum. The mucosa was carefully examined on slow withdrawal of the endoscope. The patient tolerated the procedure well. There were no immediate complications.? EGD Findings:? * Esophagus:? Focal patch of heterotopic gastric mucosa noted in the upper esophagus. The Z-line was at 41 cm with 2 small tongues of squamocolumnar mucosa extending to 39 cm. Cold forceps biopsies were taken from GE junction to rule out Barretts esophagus. A Tissue Cypher will also be sent out if Barretts confirmed. * Stomach:? Atrophic appearance of body of the stomach with mild erythema in the antrum. Retroflexion was performed in the cardia. Cold forceps biopsies were taken from the stomach body and antrum. * Duodenum:? Normal duodenal mucosa. Colonoscopy Procedure:? The patient was then turned for the colonoscopy. A digital rectal exam was performed which was abnormal for external hemorrhoids.? A distal attachment cap was affixed to the tip of the scope and the colonoscope was then inserted through the anus and advanced through the colon and advanced to the cecum at 75 cm and terminal ileum.? Appendiceal orifice and ileocecal valve were identified. Mucosa was carefully examined under high definition white light as the instrument was slowly withdrawn in a retrograde panoramic fashion. Retroflexion was performed in ascending colon and rectum. The procedure was not difficult. The quality of the prep was BBPS: 2+2+3 = adequate Withdrawal time 16 minutes Limitations: No limitations Findings: Mucosa: Normal colon and terminal ileum mucosa. There appeared to be focal irregularity of dentate line on retroflexion in the rectum under HDWL as well as NBI. See pictures. Protruding lesions: * One sessile polyp of size 4 mm noted in cecum. Cold forceps polypectomy was performed. The polyp was completely removed and retrieved. * One sessile polyp of size 2 mm noted in transverse colon. Cold snare polypectomy was performed. The polyp was completely removed and retrieved. * One sessile polyp of size 10 mm noted in descending colon. Cold snare polypectomy was performed. The polyp was completely removed and retrieved. * Large internal hemorrhoids without stigmata of recent bleeding. Excavated lesions: * Moderate diverticulosis of left colon. Impression: 1. Inlet patch 2. Irregular Z-line rule out Rodriguez's (biopsy, Tissue Cypher) 3. Gastritis (biopsy) 4. Normal duodenum 5. Normal colon and terminal ileum mucosa 6. Total 3 polyps removed 7. Diverticulosis 8. Irregular dentate line 9. Internal and external hemorrhoids Recommendations:?? * Follow-up path results * H Pylori treatment if biopsies + * Repeat EGD in 5 years if BE confirmed * Repeat colonoscopy for CRC screening in 3 years if the larger polyp is an adenoma. * We will also refer to gen surgery for dedicated anoscopy for focal irregularity noted at squamocolumnar junction at dentate line.
[2025-08-29 09:39] VITALS: BP 113/63; PULSE 76; RESP 14; TEMP 36.4; O2SAT 94
[2025-08-29 09:50] VITALS: BP 112/59; PULSE 81; RESP 14; TEMP 36.4; O2SAT 99
== END 2025-08-29 10:11 | disposition home or self-care (01) ==
PROVIDERS: Visit Provider Internal Medicine
PROC: (CPT 45380; principal; 2025-08-29 08:30)
DX: Z12.11 Encounter for screening for malignant neoplasm of colon (principal); K21.9 Gastro-esophageal reflux disease without esophagitis; Z86.0100 Personal history of colon polyps, unspecified; K64.4 Residual hemorrhoidal skin tags; K64.8 Other hemorrhoids; K57.30 Diverticulosis of large intestine without perforation or abscess without bleeding; K22.89 Other specified disease of esophagus; D12.0 Benign neoplasm of cecum; D12.4 Benign neoplasm of descending colon; D12.3 Benign neoplasm of transverse colon; K29.70 Gastritis, unspecified, without bleeding
CPT/HCPCS: 45380; 45385; 43239; 88305; 88313; 88342; J2003; J2704

== ENCOUNTER → 2025-08-29 07:37 | Outpatient (BNV) | payer OTHER, SELFPAY | PROVIDERS: Visit Provider Internal Medicine | DX: Z12.11 Encounter for screening for malignant neoplasm of colon (principal); K63.5 Polyp of colon; K57.90 Diverticulosis of intestine, part unspecified, without perforation or abscess without bleeding; K64.8 Other hemorrhoids; K21.9 Gastro-esophageal reflux disease without esophagitis; K22.89 Other specified disease of esophagus; K29.70 Gastritis, unspecified, without bleeding | CPT/HCPCS: 43239; 45385 ==